=== PATIENT | male | born 1985 | race Caucasian/White ===

== ENCOUNTER 2021-11-15 21:49 | Emergency (ER) | payer BC, SELFPAY ==
[2021-11-15 22:01] VITALS: BP 138/78; PULSE 93; RESP 16; TEMP 36.6; O2SAT 98
--- NOTE | 2021-11-15 22:04 | ED.SKABFB ---
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) Associated symptoms: denies other symptoms Treatments prior to arrival: none Related Data Home Medications Medication Instructions Recorded Confirmed No Home Medications 11/15/21 11/15/21 Allergies Allergy/AdvReac Type Severity Reaction Status Date / Time No Known Allergies Allergy Verified 11/15/21 22:01 Review of Systems Review of Systems: All systems reviewed & are unremarkable except as noted in HPI and below PMFSH Past Medical History Medical History (Updated 11/15/21 @ 22:18 by Tomás Henry MD) No active medical problems Surgical History Surgical History (Updated 11/15/21 @ 22:05 by Tomás Henry MD) H/O arthroscopic knee surgery History of arthroscopic surgery of shoulder Social History Social History (Updated 11/15/21 @ 22:04 by Tomás Henry MD) Smoking status: Never smoker Alcohol intake: never Substance use: never Exam Const: General: healthy appearing, no acute distress and alert Nutritional Appearance: well nourished and thin Orientation/consciousness: patient oriented x3 HENMT: Head: normal to inspection Ears: external ears abnormal ( right pinna is erythematous and swollen) Resp: Effort & Inspection: normal respiratory effort Auscultation: clear to auscultation bilaterally Cardio: Rate: regular rate Rhythm: regular rhythm GI: Auscultation: normal bowel sounds Back/Spine/Pelvis: Cervical Spine: cervical ROM normal Thoracic/Lumbar Spine: thoraco-lumbar ROM normal Skin: General skin exam: normal color Rashes: rashes noted left mid upper arm borders sharp, color blanching, morphology round; not target, surface erythematous, smooth and warm and tender (mild) Neuro: General: patient oriented x3, moves all extremities, no focal motor deficits and CN's II-XI intact bilaterally Speech: normal speech Gait exam (Neuro): Normal gait present Extrem: General: normal to inspection and no clubbing, cyanosis or edema Psych: Appearance: grossly normal and well kempt Mental Status: mental status grossly normal Affect: normal affect Attitude: cooperative Thought content: Yes Normal thought content present Course Vital Signs Vital signs: Vital Signs Temperature 36.6 C 11/15/21 22:01 Pulse Rate 93 11/15/21 22:01 Respiratory Rate 16 11/15/21 22:01 Blood Pressure 138/78 11/15/21 22:01 Pulse Oximetry 98 11/15/21 22:01 Temperature 36.6 C 11/15/21 22:18 Pulse Rate 88 11/15/21 22:18 Respiratory Rate 20 11/15/21 22:18 Blood Pressure 132/78 11/15/21 22:18 Pulse Oximetry 98 11/15/21 22:18 Discharge Plan Discharge Clinical Impression: Insect bites Qualifiers: Encounter type: initial encounter Site of insect bite: head Site of insect bite of head: ear Laterality: right Qualified Code(s): S00.461A - Insect bite (nonvenomous) of right ear, initial encounter Patient Disposition: Home, Self-Care Condition: Stable Instructions: Insect Bite or Sting (ED) Additional Instructions: use generic form of Zyrtec 10 mg daily can increase to twice daily as needed. Can use Benadryl and between as needed. Prescriptions: No Action No Home Medications RF: 0 Follow-up/Referrals: UNKNOWN,DOCTOR [Primary Care Provider] - Time of Disposition: :18
[2021-11-15] MEDS: diphenhydrAMINE HCl CAP 25 MG CAPSULE 50 MG PO (22:16)
[2021-11-15 22:18] VITALS: BP 132/78; PULSE 88; RESP 20; TEMP 36.6; O2SAT 98
== END 2021-11-15 22:22 | disposition home or self-care (01) ==
PROVIDERS: Emergency Provider Emergency Medicine
DX: S00.461A Insect bite (nonvenomous) of right ear, initial encounter (principal); W57.XXXA Bitten or stung by nonvenomous insect and other nonvenomous arthropods, initial encounter
CPT/HCPCS: 99282; A9270